=== PATIENT | male | born 1955 | race Caucasian/White ===

== ENCOUNTER 2022-09-05 08:01 | Outpatient (CLI) | payer MEDICARE, SELFPAY ==
--- NOTE | ~2022-09-05 | US_ITS ---
EXAMINATION: US aorta [facility] DATE: 09/05/2022 09:14 INDICATION: Abdominal aortic aneurysm screening, history of nicotine dependence TECHNIQUE: Grayscale, color Doppler, and pulsed Doppler images of the aorta and common iliac arteries were obtained. COMPARISON: None. FINDINGS: Maximum vascular dimensions are as follows: Proximal aorta: 2.9 cm Mid aorta: 2.7 cm Distal aorta: 3.2 cm Right common iliac artery: 1.4 cm Left common iliac artery: 1.3 cm There is a 3.2 x 2.8 cm fusiform infrarenal abdominal aortic aneurysm. IMPRESSION: 1. 3.2 cm fusiform infrarenal abdominal aortic aneurysm. Reviewed, dictated and finalized at location L.
--- NOTE | ~2022-09-05 | CT_ITS ---
EXAMINATION: CT lung screening DATE: 09/05/2022 08:21 INDICATION: Personal history nicotine dependence, current smoker with 50 pack year history TECHNIQUE: Computed tomography (CT) of the chest was performed without intravenous contrast. The dose -length product (DLP) was 116.40 mGy-cm. Automated exposure control and iterative reconstruction tech [employer] were employed. COMPARISON: 02/20/2018 FINDINGS: There are two stable 3 mm nodules of the right upper lobe. There is moderate emphysema. The lungs are free of acute opacities. No pleural effusion or pneumothorax. No pathologically enlarged t horacic lymph nodes are identified. The heart size is normal. Calcified coronary artery atheroscleros is is noted. There is mild thoracic spondylosis. Changes of anterior fusion procedure are noted at th e cervicothoracic junction. IMPRESSION: 1. Lung-RADS category 2: Benign appearance or behavior. Continue annual screening with noncontrast lo w-dose chest CT in 12 months. Reviewed, dictated and finalized at location L. IMPRESSION: 1. Lung-RADS category 2: Benign appearance or behavior. Continue annual screeni ng with noncontrast low-dose chest CT in 12 months.
--- NOTE | ~2022-09-05 | US_ITS ---
EXAMINATION: US arterial ankle brachial ind DATE: 09/05/2022 09:14 INDICATION: Peripheral vascular disease with claudication TECHNIQUE: Segmental pressures and plethysmographic and Doppler waveforms of the brachial and lower e xtremity arteries were obtained. COMPARISON: None. FINDINGS: Right and left brachial artery pressures of 123 mm Hg and 121 mm Hg, respectively, are concordant (no rmal difference <= 30 mmHg). The right ankle-brachial index (RAJ) is 0.65 (normal >= 0.9-1.0). The right great toe-brachial index (TBI) is 0.23 (normal >= 0.65). Arterial Doppler waveforms are biphasic with brisk systolic upstrokes at both right posterior tibial and dorsalis pedis arteries. The left RAJ is 1.07. The left TBI is 0.67. Arterial Doppler waveforms are biphasic with brisk systol ic upstrokes at both left posterior tibial and dorsalis pedis arteries. IMPRESSION: 1. Arterial occlusive disease to the right lower limb with moderately decreased right RAJ and TBI. 2. No significant arterial occlusive disease to the left lower limb with normal left RAJ and TBI. Reviewed, dictated and finalized at location A.
== END 2022-09-05 08:02 | disposition home or self-care (01) ==
PROVIDERS: PCP Family Medicine; Visit Provider Family Medicine
DX: I73.9 Peripheral vascular disease, unspecified (principal); Z13.6 Encounter for screening for cardiovascular disorders; Z87.891 Personal history of nicotine dependence; Z12.2 Encounter for screening for malignant neoplasm of respiratory organs; I71.43 Infrarenal abdominal aortic aneurysm, without rupture
CPT/HCPCS: 71271; 76706; 93922

== ENCOUNTER 2023-03-03 00:23 | Day surgery (SDC) | payer MEDICARE, SELFPAY ==
[2023-01-21 10:32] VITALS: BMI 27.1
--- NOTE | 2023-01-21 11:00 | PC.NURSE ---
Patients preop interview done, pt states he ran out of his Plavix prior to Thanksgiving took last dose ~01/14/23, reviewed with patient why compliance with this medication is important and the need for him to call Dr. Collins Tello's office. I did call Maude at Dr. Collins Limon office and she relayed this info to Dr. Tello-pt is at risk being off plavix for this length of time, spoke with Anesthesia Dr. Tracy and he wants to postpone routine colonoscopy and pt resume Plavix and remain compliant on this medication and to resched. in Feb. Spoke with patient he is picking up his Plavix today and restarting it. Rescheduled colonoscopy for Mar 03, 2023.
[2023-02-10 15:28] VITALS: BMI 26.9
--- NOTE | 2023-02-28 08:59 | SUR.PREOP ---
Patient called regarding upcoming procedure. Reviewed preop instructions, appointment times, and procedure prep.
--- NOTE | 2023-02-28 16:22 | PM.HPGS ---
History of Present Illness History of Present Illness Consent: Risks, benefits, and alternatives have been discussed and questions answered. Patient agrees to proceed with procedure. Chief complaint: hx of colon polyps Narrative: Farhan Carroll is a 67 year old male Referred for colon cancer screening. He has history of polyps. Five years ago he had removal of 3 tubular adenomas. Review of Systems Review of Systems: All systems reviewed & are unremarkable except as noted in HPI and below PMFSH Past Medical History Medical History Hypothyroidism PAD (peripheral artery disease) Surgical History Surgical History Peripheral vascular angioplasty status s/p RLE stent Family History Family History Father Family history of malignant neoplasm Social History Social History Smoking packs per day: 1 Smoking cigarettes per day: 20.0 Years smoked: 50 Smoking pack-years: 50.00 Smoking status: Former smoker Tobacco type: cigarettes Smoking end date: 02/24/13 Alcohol intake: current Alcohol use details: rarely Substance use: never Substance use type: does not use Lack of Transportation: No Lack of Food: Never True Current Housing: I Have Housing Concerned About Future Housing: No Difficulty Paying Gas/Electric Bills: No Difficulty Paying for Meds: No Currently Unemployed: No Education: High School Diploma/GED Difficulty w/ Childcare or Family Care: No Living arrangements: with family Occupation/Education: retired Gender identity (if verbalized by the patient): Male Spiritual care concerns: No Meds Home Medications and Allergies Home Medications Medication Instructions Recorded Confirmed Type sildenafil 100 mg tablet (Viagra) 100 mg PO DAILY PRN sexual 08/14/22 03/03/23 Rx activity #30 tabs levothyroxine 50 mcg tablet 50 mcg PO DAILY #30 tabs 01/13/23 03/03/23 Rx clopidogrel 75 mg tablet 75 mg PO DAILY 01/21/23 03/03/23 History aspirin 81 mg capsule 81 mg PO DAILY 02/06/23 03/03/23 History ibuprofen 200 mg tablet 200 mg PO Q6H PRN Pain 02/06/23 03/03/23 History famotidine 20 mg tablet 20 mg PO DAILY #30 tabs 02/19/23 03/03/23 Rx Allergies Allergy/AdvReac Type Severity Reaction Status Date / Time heparin Allergy Mild Blister Verified 03/03/23 07:44 Exam Const: General: alert Orientation/consciousness: patient oriented x3 Resp: Auscultation: clear to auscultation bilaterally Cardio: Rhythm: regular rhythm GI: GI Palp: Yes Soft to palpation and No Tenderness to palpation present (GI) Neuro: General: patient oriented x3 Assessment and Plan Assessment and plan (1) Colon cancer screening: Code(s): Z12.11 - Encounter for screening for malignant neoplasm of colon Status: Acute Assessment and Plan: Colonoscopy with possible biopsy or polypectomy or cautery or injection of substances.
[2023-03-03 07:45] VITALS: BP 116/69; PULSE 59; RESP 18; TEMP 36.2; O2SAT 95
[2023-03-03] MEDS: LACTATED RINGERS 1,000 ML 150 ML IV CONT (07:53)
--- NOTE | 2023-03-03 08:44 | WPDANESEPPF ---
Anes - Initial Pre Proc Eval Procedure: Operation Date: 03/03/23 09:00 Proposed Procedures p Colonoscopy - Bryan Fuller MD Date/Time: 03/03/23 08:44 Surgeon: Bryan Fuller MD Pre Op Diagnosis: hx of colon polyps Patient Data Age: 67 Gender: M Height: 1.83 m Weight: 93 kg Last Vital Signs Temp 97.1 F L 03/03/23 07:45 Pulse 59 L 03/03/23 07:45 Resp 18 03/03/23 07:45 BP 116/69 03/03/23 07:45 Pulse Ox 95 03/03/23 07:45 O2 Del Method Room Air 03/03/23 07:45 Allergies Allergy/AdvReac Type Severity Reaction Status Date / Time heparin Allergy Mild Blister Verified 03/03/23 07:44 Home Medications Medication Instructions Recorded Confirmed Type sildenafil 100 mg tablet (Viagra) 100 mg PO DAILY PRN sexual 08/14/22 03/03/23 Rx activity #30 tabs levothyroxine 50 mcg tablet 50 mcg PO DAILY #30 tabs 01/13/23 03/03/23 Rx clopidogrel 75 mg tablet 75 mg PO DAILY 01/21/23 03/03/23 History aspirin 81 mg capsule 81 mg PO DAILY 02/06/23 03/03/23 History ibuprofen 200 mg tablet 200 mg PO Q6H PRN Pain 02/06/23 03/03/23 History famotidine 20 mg tablet 20 mg PO DAILY #30 tabs 02/19/23 03/03/23 Rx Patient hx anesthesia problems: none Family hx anesthesia problems: none Results Review: All pre-operative results and documents have been reviewed as part of the pre-operative evaluation. [facility] Past Medical History Medical History Hypothyroidism PAD (peripheral artery disease) Surgical History Surgical History Peripheral vascular angioplasty status s/p RLE stent Family History Family History Father Family history of malignant neoplasm Social History Social History Smoking packs per day: 1 Smoking cigarettes per day: 20.0 Years smoked: 50 Smoking pack-years: 50.00 Smoking status: Former smoker Tobacco type: cigarettes Smoking end date: 02/24/13 Alcohol intake: current Alcohol use details: rarely Substance use: never Substance use type: does not use Lack of Transportation: No Lack of Food: Never True Current Housing: I Have Housing Concerned About Future Housing: No Difficulty Paying Gas/Electric Bills: No Difficulty Paying for Meds: No Currently Unemployed: No Education: High School Diploma/GED Difficulty w/ Childcare or Family Care: No Living arrangements: with family Occupation/Education: retired Gender identity (if verbalized by the patient): Male Spiritual care concerns: No Anes - Eval Final PreProcedure Day of Procedure 03/03/23 08:44 Patient weight: normal Heart: regular rate and rhythm Lungs: clear to auscultation Airway: Mallampati scale class II Neurological: alert and oriented Last oral intake: >/= 8 hours ASA classification: III Emergent: no Anesthetic plan: proceed Anesthesia type and monitoring: general GIVS and standard monitoring Results Review: All pre-operative results and documents have been reviewed as part of the pre-operative evaluation. Informed Consent: The patient's anesthetic plan and its attendant risks and benefits were discussed with the patient/family/POA. Questions were solicited and answers provided to the satisfaction of the patient/family/POA.
[2023-03-03 09:20] VITALS: BP 83/51; PULSE 45; RESP 18; O2SAT 95
[2023-03-03 09:30] VITALS: BP 102/68; PULSE 51; RESP 14; O2SAT 96
[2023-03-03 09:40] VITALS: BP 110/75; PULSE 54; RESP 17; O2SAT 98
== END 2023-03-03 09:58 | disposition home or self-care (01) ==
PROVIDERS: PCP Family Medicine; Visit Provider Internal Medicine Gastroenterology
PROC: 0DJD8ZZ Inspection of Lower Intestinal Tract, Via Natural or Artificial Opening Endoscopic (ICD-10-PCS; CPT 45378; principal; 2023-03-03 09:00)
DX: Z12.11 Encounter for screening for malignant neoplasm of colon (principal); D12.8 Benign neoplasm of rectum; D12.0 Benign neoplasm of cecum; D12.4 Benign neoplasm of descending colon; K64.8 Other hemorrhoids; K57.30 Diverticulosis of large intestine without perforation or abscess without bleeding; E03.9 Hypothyroidism, unspecified; Z79.02 Long term (current) use of antithrombotics/antiplatelets; Z79.82 Long term (current) use of aspirin; Z95.820 Peripheral vascular angioplasty status with implants and grafts; Z86.79 Personal history of other diseases of the circulatory system; Z87.891 Personal history of nicotine dependence; Z80.9 Family history of malignant neoplasm, unspecified
CPT/HCPCS: 45385; 88305; J2704; J7120

== ENCOUNTER → 2023-03-05 10:38 | Outpatient (CLI) | payer MEDICARE, SELFPAY ==
--- NOTE | ~2023-03-05 | XR_ITS ---
XR hand RT 2V DATE: 03/05/2023 11:19 INDICATION: Pain in right fingers TECHNIQUE: AP and lateral views of right hand COMPARISON: None FINDINGS: There is mild osteoarthritis at the triscaphe, first carpometacarpal, first through third m etacarpophalangeal and multiple interphalangeal joints. No fracture or dislocation, periosteal reaction or bone destruction. No erosive change or chondrocalc inosis. IMPRESSION: Mild polyarticular osteoarthritis Reviewed, dictated and finalized at location B. [employer]
== END ==
PROVIDERS: PCP Family Medicine; Visit Provider Family Medicine
DX: M19.041 Primary osteoarthritis, right hand (principal)
CPT/HCPCS: 73120

== ENCOUNTER → 2023-03-11 10:58 | Outpatient (CLI) | payer MEDICARE, SELFPAY ==
--- NOTE | ~2023-03-11 | XR_ITS ---
XR chest 2V DATE: 03/11/2023 11:10 INDICATION: Cough TECHNIQUE: 2 views COMPARISON: 09/05/2022 CT lung screening 08/04/2013 2 view chest FINDINGS: Normal heart size. Aortic arch calcification. No hilar or mediastinal enlargement. The lungs are moderately hyperinflated. No pulmonary infiltrate or consolidation, pleural effusion or pulmonary vascular congestion or pneumothorax is detected. Status post anterior cervicothoracic spine surgical fusion. IMPRESSION: Moderate hyperinflation; no active cardiopulmonary disease Aortic atherosclerosis Reviewed, dictated and finalized at location L. [employer]
== END ==
PROVIDERS: PCP Physician Assistant; Visit Provider Physician Assistant
DX: R05.9 Cough, unspecified (principal); R91.8 Other nonspecific abnormal finding of lung field; I70.0 Atherosclerosis of aorta
CPT/HCPCS: 71046

== ENCOUNTER 2023-07-14 12:48 | Emergency (ER) | payer MEDICARE, SELFPAY ==
[2023-07-14 13:02] VITALS: BP 135/74; PULSE 50; RESP 16; TEMP 36.2; O2SAT 98
--- NOTE | 2023-07-14 13:34 | ED.SKABFB ---
HPI - Skin/Abscess/Foreign Bdy General Chief complaint: Skin/Abscess/Foreign Body Stated complaint: spider bite right lower arm,red,swollen Time Seen by Provider: 07/14/23 13:29 Source: patient and RN notes reviewed Mode of arrival: ambulatory Limitations: no limitations History of Present Illness HPI narrative: Patient presents today complaining of possible insect bite to the right forearm that occurred 2 days ago at home. Redness, itching, and mild swelling. Symptoms seem to be slightly worse today. He has tried some [id number] cortisone with mild short-term relief. Related Data Home Medications Medication Instructions Recorded Confirmed aspirin 81 mg capsule 81 mg PO DAILY 02/06/23 07/14/23 Allergies Allergy/AdvReac Type Severity Reaction Status Date / Time heparin Allergy Mild Blister Verified 05/06/23 10:13 Review of Systems Review of Systems: CONSTITUTIONAL: Denies body aches, fever, chills, or sweats. EYES: Denies visual changes, redness, or discharge. ENT: Denies rhinorrhea, congestion, sore throat, or otalgia. CARDIOVASCULAR: Denies chest pain, palpitations, or edema. RESPIRATORY: Denies cough or dyspnea. GASTROINTESTINAL: Denies abdominal pain, nausea, vomiting, or diarrhea. GENITOURINARY: Denies dysuria or hematuria. SKIN: + insect bite MUSCULOSKELETAL: Denies back pain, joint pain, or myalgia. NEUROLOGIC: Denies headache, numbness, tingling, or weakness. PSYCH: Denies depression or anxiety. [facility] Past Medical History Medical History Hypothyroidism PAD (peripheral artery disease) Surgical History Surgical History Peripheral vascular angioplasty status s/p RLE stent Family History Family History Father Family history of malignant neoplasm Social History Social History Smoking packs per day: 1 Smoking cigarettes per day: 20.0 Years smoked: 50 Smoking pack-years: 50.00 Smoking status: Former smoker Tobacco type: cigarettes Smoking end date: 02/24/13 Alcohol intake: current Alcohol use details: rarely Substance use: never Substance use type: does not use Lack of Transportation: No Lack of Food: Never True Current Housing: I Have Housing Concerned About Future Housing: No Difficulty Paying Gas/Electric Bills: No Difficulty Paying for Meds: No Currently Unemployed: No Education: High School Diploma/GED Difficulty w/ Childcare or Family Care: No Living arrangements: with family Occupation/Education: retired Gender identity (if verbalized by the patient): Male Spiritual care concerns: No Comments At time of signature, I have reviewed and agree with nursing past medical, surgical, social and family history unless otherwise noted. Please see nursing chart for further information. There is no relevant family history pertinent to the presenting complaint Exam Narrative: GENERAL: Well-appearing, well-nourished, and in no acute distress. HEAD: Normocephalic, atraumatic. EYES: EOMI. No redness or drainage. Conjunctivae normal. ENT: Mucous membranes pink and moist. NECK: Normal AROM. CHEST: No respiratory distress. EXTREMITIES: Right forearm: 4 x 6 cm area of erythema to the right distal ulna area with some mild induration. Nontender to palpation. No obvious puncture wounds or scabs noted. No fluctuance or drainage. Distal sensation intact. Capillary refill normal. Radial pulse normal. Full range of motion of the wrist without discomfort. SKIN: Warm, dry, no rash. Capillary refill normal. Normal skin turgor. NEURO: No focal deficits. Alert and oriented x3. Gait steady. PSYCH: Normal affect. No signs of depression or anxiety. Course Course Level of Care: Express Care Vi
== END 2023-07-14 13:47 | disposition home or self-care (01) ==
PROVIDERS: Emergency Provider Nurse Practitioner; PCP Family Medicine
DX: S50.861A Insect bite (nonvenomous) of right forearm, initial encounter (principal); W57.XXXA Bitten or stung by nonvenomous insect and other nonvenomous arthropods, initial encounter; Z87.891 Personal history of nicotine dependence; E03.9 Hypothyroidism, unspecified; I73.9 Peripheral vascular disease, unspecified
CPT/HCPCS: 99213; G0463

== ENCOUNTER 2023-09-08 10:59 | Outpatient (CLI) | payer MEDICARE, SELFPAY ==
--- NOTE | ~2023-09-08 | CT_ITS ---
CT Scan of the Chest without Contrast: Clinical Indication: Lung cancer screening, nicotine dependence Technique: Contiguous sections were acquired throughout the chest without intravenous contrast. Dose reduction technique was used on this scan by utilizing automated exposure control and iterative recon struction technique. The dose-length product (DLP) was 136.44 mGy-cm. COMPARISON: 09/05/2022 Findings: There is no evidence of any significant mediastinal, hilar or axillary lymphadenopathy. Coronary nathaniel ry calcifications are present. There is no evidence of pleural or pericardial effusion. Calcified lingular granuloma noted. Stable 3 mm right upper lobe nodule. There is moderate emphysema. Images through the upper abdomen reveal no abnormalities. Impression: Lung RADS 2: Benign appearance. 12 month follow-up screening CT advised. Reviewed, dictated and finalized at [facility]. Impression: Lung RADS 2: Benign appearance. 12 month follow-up screening CT advised.
== END 2023-09-08 11:00 ==
LOC: GOSHIMG 10:59
PROVIDERS: PCP Family Medicine; Visit Provider Internal Medicine Pulmonary Disease
DX: Z12.2 Encounter for screening for malignant neoplasm of respiratory organs (principal); Z87.891 Personal history of nicotine dependence
CPT/HCPCS: 71271

== ENCOUNTER 2023-09-26 10:17 | Outpatient (CLI) | payer MEDICARE, SELFPAY ==
--- NOTE | ~2023-09-26 | XR_ITS ---
EXAMINATION: XR lumbar spine 2-3V DATE: 09/26/2023 10:31 INDICATION: Low back pain, unspecified. TECHNIQUE: 3 views of lumbar spine including standing views were obtained. COMPARISON: None. FINDINGS: There is 13 degrees dextroscoliosis of lumbar spine. There is mild chronic anterior wedging of L1 vertebral body. There is severely decreased disc height at L1-L2, moderately decreased disc he ight at L2-L3, severely decreased disc height at L3-L4, and moderately decreased disc height at L4-L5 . There is multilevel severe facet joint osteoarthritis. IMPRESSION: 1. Severe lumbar spondylosis. 2. Lumbar dextroscoliosis. Reviewed, dictated and finalized at location A.
== END 2023-09-26 10:18 ==
LOC: MICIMG 10:20
PROVIDERS: PCP Family Medicine; Visit Provider Physician Assistant Medical
DX: M43.06 Spondylolysis, lumbar region (principal); M41.86 Other forms of scoliosis, lumbar region
CPT/HCPCS: 72100

== ENCOUNTER 2023-11-03 10:45 | Outpatient (CLI) | payer MEDICARE, SELFPAY ==
--- NOTE | ~2023-11-03 | US_ITS ---
EXAMINATION: US soft tissue LE LT DATE: 11/03/2023 11:00 INDICATION: Synovial cyst of the tibial space of the left knee. TECHNIQUE: Multiple grayscale and Doppler ultrasound images of the abdomen were obtained. COMPARISON: None FINDINGS: Normal directional vascular flow identified at the left popliteal artery and vein at the popliteal fo ssa. No aneurysm. Deep popliteal vein is patent and compressible. No Jay's cyst or other abnormal m asses or fluid collections identified at the popliteal fossa. IMPRESSION: 1. Normal ultrasound of the left popliteal fossa without evident Jay's cyst. Reviewed, dictated and finalized at location B.
== END 2023-11-03 10:46 | disposition home or self-care (01) ==
LOC: MICIMG 10:46
PROVIDERS: PCP Family Medicine; Visit Provider Orthopaedic Surgery
DX: M71.22 Synovial cyst of popliteal space [Baker], left knee (principal)
CPT/HCPCS: 76882

== ENCOUNTER 2023-11-18 06:47 | Outpatient (CLI) | payer MEDICARE, SELFPAY ==
--- NOTE | ~2023-11-18 | MR_ITS ---
MRI of the left knee Clinical history: Synovial cyst Technique: Coronal proton density and proton density-weighted images, sagittal proton-density and T2 fat-sat images, and axial proton-density fat-saturated images were acquired. Findings: Anterior and posterior cruciate ligaments are intact. Medial collateral ligament and the la teral collateral ligament complex are intact. Popliteus tendon is intact. Medial and lateral menisci are intact, without definite tear. There is intrasubstance degenerative si gnal of the posterior horn of the medial meniscus. There is high-grade chondromalacia along the medial patellar facet. There is patchy moderate to high- grade chondromalacia the femoral trochlea, especially at the inferior aspect. There is patchy moderat e chondromalacia of the lateral femoral condyle and medial femoral condyle. Extensor mechanism is intact. No significant joint effusion. Small Jay cyst present. Impression: Small Jay's cyst. Tricompartmental chondromalacia, as detailed above. Reviewed, dictated and finalized at location . Impression: Small Jay's cyst. Tricompartmental chondromalacia, as detailed above.
== END 2023-11-18 06:48 | disposition home or self-care (01) ==
LOC: MICIMG 06:47
PROVIDERS: PCP Family Medicine; Visit Provider Orthopaedic Surgery
DX: M71.22 Synovial cyst of popliteal space [Baker], left knee (principal); M22.42 Chondromalacia patellae, left knee
CPT/HCPCS: 73721

== ENCOUNTER 2024-09-08 10:59 | Outpatient (CLI) | payer MEDICARE, SELFPAY ==
--- NOTE | ~2024-09-08 | CT_ITS ---
CT Scan of the Chest without Contrast: Clinical Indication: Cancer screening, nicotine dependence Technique: Contiguous sections were acquired throughout the chest without intravenous contrast. Dose reduction technique was used on this scan by utilizing automated exposure control and iterative recon struction technique. The dose-length product (DLP) was 175.30 mGy-cm. COMPARISON: 09/08/2023 Findings: There is no evidence of any significant mediastinal, hilar or axillary lymphadenopathy. The mediastin al soft tissues appear normal. There is no evidence of pleural or pericardial effusion. Moderate emphysema. Stable 3 mm pleural-based nodule right upper lobe. Images through the upper abdomen reveal no abnormalities. Impression: Lung RADS 2: Benign appearance. 12 month follow-up screening CT advised. Reviewed, dictated and finalized at location . Impression: Lung RADS 2: Benign appearance. 12 month follow-up screening CT advised.
== END 2024-09-08 11:00 | disposition home or self-care (01) ==
LOC: MICIMG 11:01
PROVIDERS: PCP Family Medicine; Visit Provider Family Medicine
DX: Z12.2 Encounter for screening for malignant neoplasm of respiratory organs (principal); Z87.891 Personal history of nicotine dependence
CPT/HCPCS: 71271

== ENCOUNTER 2024-11-26 11:01 | Outpatient (CLI) | payer MEDICARE, SELFPAY ==
--- NOTE | ~2024-11-26 | XR_ITS ---
XR lumbar spine 2-3V Indication: M54.50 - Low back pain, unspecified Comparison: None Findings: Dextroconvex scoliosis. Moderate loss of vertebral height throughout. No acute fracture. Moderate to severe loss of disc height throughout. Soft tissues unremarkable Impression: No acute abnormality. Reviewed, dictated and finalized at location P. Impression: No acute abnormality.
== END 2024-11-26 11:02 | disposition home or self-care (01) ==
LOC: MICIMG 11:02
PROVIDERS: PCP Family Medicine; Visit Provider Student in an Organized Health Care Education/Training Program
DX: M54.50 Low back pain, unspecified (principal)
CPT/HCPCS: 72100